=== PATIENT | female | born 1995 | race Two or more races ===

== ENCOUNTER 2022-03-04 15:22 | Outpatient (CLI) | payer BC | END 2022-03-04 15:23 | disposition home or self-care (01) | LOC: CSHULT 15:22 | PROVIDERS: ATTEND Family Medicine | DX: Z34.02 Encounter for supervision of normal first pregnancy, second trimester (principal); Z3A.19 19 weeks gestation of pregnancy | CPT/HCPCS: 76805 ==

== ENCOUNTER 2022-07-17 07:14 | Day surgery (SDC) | payer BC ==
[2022-07-17 07:51] VITALS: BMI 31.7
[2022-07-17] MEDS ORDERED: hydrALAZINE 20 MG/ML VIAL SLOW IVP PRN (08:48)
== END 2022-07-17 10:08 | disposition home or self-care (01) ==
LOC: CSHLD/OP 07:14
PROVIDERS: ATTEND Family Medicine
DX: O47.1 False labor at or after 37 completed weeks of gestation (principal); Z88.1 Allergy status to other antibiotic agents; Z91.013 Allergy to seafood; Z3A.39 39 weeks gestation of pregnancy
CPT/HCPCS: 99282

== ENCOUNTER 2022-07-19 16:08 | Inpatient (IN) | payer BC ==
[2022-07-19 17:18] VITALS: BMI 30.7
[2022-07-19] MEDS ORDERED: Butorphanol Tartrate 1 MG/ML VIAL SLOW IVP PRN (17:45)
[2022-07-19] MEDS ORDERED: Ondansetron PF 4 MG/2 ML Vial IVP PRN (17:45)
[2022-07-19] MEDS ORDERED: hydrALAZINE 20 MG/ML VIAL SLOW IVP PRN (17:45)
[2022-07-19] MEDS ORDERED: HYDROcodone/Acetaminophen 5/325 mg Tablet PO PRN (17:45)
[2022-07-19] MEDS ORDERED: Promethazine HCl 25 MG/ML VIAL IM PRN (17:45)
[2022-07-19] MEDS ORDERED: Acetaminophen 500 MG TAB PO PRN (17:45)
[2022-07-19] MEDS ORDERED: Lidocaine 1% (PF) 30 ML VIAL SC PRN (17:45)
[2022-07-19] MEDS ORDERED: Carboprost 250 MCG/ML AMP IM PRN (17:45)
[2022-07-19] MEDS ORDERED: Methylergonovine 0.2 MG/ML VIAL IM PRN (17:45)
[2022-07-19] MEDS ORDERED: Ibuprofen 800 MG TAB PO PRN (17:45)
[2022-07-19] MEDS ORDERED: NS w/ Oxytocin 30 units 500 ML IV SCH ×2 (17:45)
[2022-07-19] MEDS ORDERED: Misoprostol 200 MCG TAB PR PRN (17:45)
[2022-07-19] MEDS ORDERED: Diphenoxylate HCl/Atropine Tablet PO PRN (17:45)
[2022-07-19] MEDS ORDERED: Lactated Ringer's 1,000 ML IV SCH (17:45)
[2022-07-19 18:03] LABS: Hemoglobin 13.5 g/dL (12.0-15.5); Mean Corpuscular HGB CONC 35.5 g/dL (32.0-36.0); Mean Corpuscular Hemoglobin 31.8 pg (27.0-33.0); Mean Corpuscular Volume 89.6 fl (81.6-98.3); Mean Platelet Volume 12.2 fl (7.4-10.4); Platelet Count 231 10x3/uL (150-450); RBC Distribution Width 13.5 % (11.5-14.5); Red Blood Cell (RBC) Count 4.24 10x6/uL (3.90-5.03); White Blood Cell (WBC) Count 7.9 10x3/uL (3.5-10.5)
[2022-07-19] MEDS ORDERED: CEFAZOLIN 1 GM VIAL ONE (18:32)
[2022-07-19 18:36] LABS: HBSAg Index 0.15 S/CO (0-0.99); Hep B Surf Ag Non-Reactive S/CO (NonReactive); Syphilis Antibody Nonreactive (Nonreactive); Syphilis Antibody Index 0.04 S/CO (<1.00 Non-Reactive)
[2022-07-19] MEDS ORDERED: CEFAZOLIN 2 GM in Sodium Chloride 0.9% 100 ML IVPB SCH (18:45)
[2022-07-19 19:17] LABS: SARS-CoV-2 NAA Rapid Test Not Detected (NotDetected)
[2022-07-19 19:41] LABS: Glucose 87 mg/dL (70-105)
[2022-07-20] MEDS ORDERED: CEFAZOLIN 2 GM VIAL ONE (00:25)
[2022-07-20] MEDS ORDERED: Ondansetron PF 4 MG/2 ML Vial IVP PRN (08:48)
[2022-07-20] MEDS ORDERED: Bisacodyl 10 MG SUPP PR PRN (08:48)
[2022-07-20] MEDS ORDERED: Lanolin Ointment 7 GM TUBE TOP PRN (08:48)
[2022-07-20] MEDS ORDERED: Boostrix 0.5 ML (Tdap) VIAL (>/=7 yrs of age) IM ONE (08:48)
[2022-07-20] MEDS ORDERED: hydrALAZINE 20 MG/ML VIAL SLOW IVP PRN (08:48)
[2022-07-20] MEDS ORDERED: Milk Of Magnesia 30 ML UDCUP PO PRN (08:48)
[2022-07-20] MEDS ORDERED: Promethazine HCl 25 MG/ML VIAL IM PRN (08:48)
[2022-07-20] MEDS ORDERED: Benzocaine-Menthol 82.5 ML CAN TOP PRN (08:48)
[2022-07-20] MEDS ORDERED: HYDROcodone/Acetaminophen 5/325 mg Tablet PO PRN (08:48)
[2022-07-20] MEDS ORDERED: diphenhydrAMINE 25 MG CAP PO PRN (08:48)
[2022-07-20] MEDS ORDERED: Ferrous Sulfate 325 MG TAB PO SCH (09:00)
[2022-07-20] MEDS: Docusate 100 MG CAP PO SCH ×3 (09:20→21:42)
[2022-07-20] MEDS: Prenatal Vitamin 1 TAB PO SCH ×2 (09:20→09:24)
[2022-07-20] MEDS: Acetaminophen 325 MG TAB PO PRN ×2 (11:00→17:26)
[2022-07-20] MEDS: Ibuprofen 800 MG TAB PO SCH ×2 (13:53→21:43)
[2022-07-20] MEDS: Ferrous Sulfate 325 MG TAB PO SCH (16:26)
[2022-07-21] MEDS: Ibuprofen 800 MG TAB PO SCH ×3 (06:33→23:19)
[2022-07-21] MEDS: Prenatal Vitamin 1 TAB PO SCH ×2 (07:40→07:43)
[2022-07-21] MEDS: Docusate 100 MG CAP PO SCH ×3 (07:41→23:20)
[2022-07-21] MEDS: Ferrous Sulfate 325 MG TAB PO SCH ×2 (07:41→17:47)
[2022-07-21 20:29] VITALS: TEMP 97.9
[2022-07-22] MEDS: Ibuprofen 800 MG TAB PO SCH (06:18)
[2022-07-22 07:48] VITALS: BP 101/67
[2022-07-22] MEDS: Prenatal Vitamin 1 TAB PO SCH (10:05)
[2022-07-22] MEDS: Docusate 100 MG CAP PO SCH (10:05)
[2022-07-22] MEDS: Ferrous Sulfate 325 MG TAB PO SCH (10:05)
== END 2022-07-22 10:32 | disposition home or self-care (01) | DRG 807 ==
LOC: CSHLD/OP 16:08 → CSHLD 17:36 → CSHPED 07-20 08:10
PROVIDERS: ADMIT Family Medicine; ATTEND Family Medicine
PROC: 10E0XZZ Delivery of Products of Conception, External Approach (ICD-10-PCS; principal; 2022-07-20)
PROC: 0KQM0ZZ Repair Perineum Muscle, Open Approach (ICD-10-PCS; 2022-07-20)
DX: O42.02 Full-term premature rupture of membranes, onset of labor within 24 hours of rupture (principal); Z37.0 Single live birth; Z20.822 Contact with and (suspected) exposure to COVID-19; Z3A.40 40 weeks gestation of pregnancy; O99.824 Streptococcus B carrier state complicating childbirth; O24.420 Gestational diabetes mellitus in childbirth, diet controlled; Z88.0 Allergy status to penicillin; Z91.013 Allergy to seafood; Z91.014 Allergy to mammalian meats; O70.1 Second degree perineal laceration during delivery
CPT/HCPCS: 36415; 36416; 82947; 85027; 86780; 86850; 86900; 86901; 87340; 99282; J0690; U0002